=== PATIENT | female | born 2000 | race Two or more races ===

== ENCOUNTER 2024-11-16 22:35 | Observation (INO) | payer OTHER ==
[~2024-11-16] VITALS: Ht 167.6 cm; Wt 59.0 kg
--- NOTE | 2024-11-17 00:08 | DVH ---
EXAM: US OB ULTRASOUND COMP GTR 14 WKS HISTORY: vaginal bleeding TECHNIQUE: Multiple real-time grayscale images of the gravid uterus with duplex Doppler color flow an d M-mode spectral analysis. COMPARISON: None FINDINGS: IUP single live fetus at 20 weeks 0 days average ultrasound age (AUA) based on composite averages of the BPD, head circumference, abdominal circumference and femur length Age based on (early ultrasound) : 20 weeks 0 days MEASUREMENTS: BPD: 4.7 cm GA: 20 w 2 d HC: 17.5 cm GA: 20 w 0 d AC: 14.7 cm GA: 20 w 0 d FL: 3.1 cm GA: 19 w 4 d Estimated weight 314+/-47 grams; 11 lbs 2 oz. heart rate 140 beats per minute MVP 5.3 ANATOMIC SURVEY: Single IUP Cephalic Presentation Anterior placenta without previa or abruption Cervix long and closed measuring 3.0 cm IMPRESSION: 1. IUP single live fetus at 20 weeks 0 days AUA corresponding to an VALENTINO of 04/05/2025. 2. No abnormality detected.
[2024-11-17 01:25] LABS: Vaginal Bacteria Few; Vaginal Epithelial Cells Few
[2024-11-17 01:26] LABS: Vaginal Clue Cells None Seen; Vaginal Trichomonas Not Present
--- NOTE | 2024-11-17 01:27 | DVHDS2 ---
Physician Discharge Progress N Final Diagnosis: IUP at 22w Vaginitis Operations or Procedures: Operations or Procedures 24yo G3,1011 with self reported EDC of 03/19/[address]. She reports that she sees blood on tissue paper with wiping. normal movements, no LOF, or contractions. She denies, any urinary symptom. Reports last intercourse was 3months ago Reports she is a [facility] patient and has her first OB appointment scheduled for 11/18/24 PMH: H/o HSV infection History of C- section in Feb 2024 for genital HSV lesion O: A&O x3, VSS Resp unlabored Appears uncomfortable No CVA tenderness Abdomen palpate soft EFM: No UC noted on FHT 140bpm SSE: Thick clumpy off-white vaginal discharge noted; specimen collected for wet mount OB Ultrasound reports no Placenta Previa, no abruption A: IUP at 22w 2d Vaginitis- Maryann h/o Genital HSV Infection; no lesion noted at this time P: Rx Terconazole 0.4% vaginal cream, 1 applicatorful PV Q HS x 7d Discharge home Advised to increase water intake. Follow up with OB care Provider the soonest; states that she has appointment with [facility] on 11/18/24 Condition on Discharge: Good Disposition: Home Discharge Instructions: Diet: Regular Activity: No Restrictions, As Tolerated Follow Up/Referral: Follow up with OB care Provider the soonest; states that she has appointment with [facility] on 11/18/24 Medications: Terconazole 0.4% vaginal crem Follow Up Care: Discharge Statement: 2nd trimester emergency S&S FMC, PTL & pre-eclampsia precautions reviewed with pt; advised to seek health care if any "Patient was advised to return to the ER or call 911 if any headaches, dizzines s, shortness of breath, chest pain, abdominal pain, bleeding, fevers, or worsening of medical condition. Patient was counseled about treatment plan, medications, possible side effects, patientverbalized understanding. All questions were answered to the best of my ability. This discharge took greater then 30 minutes in planning, reviewing documentation, counseling the patient, and discussing with other team members." Visit Coding OBGYN Date of Service: Nov 17, 2024 Billing Provider: BEATA LANTIGUA CNM [employer] SAL[employer] REPRESENTATIVE Common Visit Codes: 42468-UDV/OBS SAME DATE (HIGH) [employer] SAL[employer] REPRESENTATIVE Procedure Codes: 58815-61- NON-STRESS TEST BEATA LANTIGUA CNM Nov 17, 2024 01:27
== END 2024-11-17 03:04 | disposition home or self-care (01) ==
LOC: LDRP 22:35
PROVIDERS: ADMIT Obstetrics & Gynecology; ATTEND Obstetrics & Gynecology
DX: O23.592 Infection of other part of genital tract in pregnancy, second trimester (principal); Z3A.22 22 weeks gestation of pregnancy; Z79.899 Other long term (current) drug therapy; Z98.890 Other specified postprocedural states
CPT/HCPCS: 76805; 81002; 87210; 87491; 87591; 94760; 94762; G0378